=== PATIENT | male | born 1990 ===

== ENCOUNTER 2023-08-04 20:19 | Emergency (ER) | payer SELFPAY ==
[2023-08-04] MEDS ORDERED: Ketorolac 30 MG/ML SDV IVPUSH ONE (21:14)
[2023-08-04] MEDS ORDERED: Sodium Chloride 0.9% 10 ML Syringe FLUSH PRN (21:14)
[2023-08-04] MEDS ORDERED: Ampicillin/Sulbactam Na 3 GM in Sodium Chloride 0.9% 100 ML IV ONE (21:14)
== END 2023-08-04 22:04 | disposition home or self-care (01) ==
LOC: DL.ED 20:19
DX: K04.7 Periapical abscess without sinus (principal); F17.210 Nicotine dependence, cigarettes, uncomplicated
CPT/HCPCS: 96365; 96375; 99283; 99283-25; J0295; J1885; J3490